=== PATIENT | male | born 1980 | race Caucasian/White ===

== ENCOUNTER 2020-12-13 01:45 | Emergency (ER) | payer OTHER, MEDICAID ==
[~2020-12-13] VITALS: Ht 182.9 cm; Wt 81.6 kg
[2020-12-13 02:22] VITALS: Ht 182.9 cm; Wt 81.6 kg
[2020-12-13 05:40] VITALS: BP 119/77
== END 2020-12-13 05:40 | disposition home or self-care (01) ==
LOC: ED 01:45
DX: M79.10 Myalgia, unspecified site (principal); V49.49XA Driver injured in collision with other motor vehicles in traffic accident, initial encounter; Y93.I9 Activity, other involving external motion; Y92.413 State road as the place of occurrence of the external cause; Y99.8 Other external cause status
CPT/HCPCS: J1885; Q9967